=== PATIENT | female | born 1990 | race Caucasian/White ===

== ENCOUNTER 2016-12-25 13:08 | Emergency (ER) | payer MEDICAID, MEDICARE, OTHER ==
[~2016-12-25] VITALS: Ht 157.5 cm; Wt 68.0 kg
[2016-12-25 13:24] VITALS: BP 142/98
[2016-12-25] MEDS ORDERED: LIDOCAINE HCL 1% 20ML VIAL (Pyxis) INJ INFIL ONE (15:00)
[2016-12-25] MEDS ORDERED: BACITRACIN ZINC OINT UDPKT TOP ONE (16:15)
== END 2016-12-25 16:26 | disposition home or self-care (01) ==
LOC: ER 15:06
DX: L03.039 Cellulitis of unspecified toe (principal); Z98.890 Other specified postprocedural states
CPT/HCPCS: 10060; 99283; J3490; Z7610